=== PATIENT | female | born 1930 | race Two or more races ===

== ENCOUNTER 2018-10-29 22:49 | Inpatient (IN) | payer MEDICARE, MEDICAID ==
[~2018-10-29] VITALS: Ht 147.3 cm; Wt 68.9 kg
--- NOTE | 2018-10-29 23:34 | NUR ---
assessment made. ERP at bedside.
--- NOTE | 2018-10-29 23:38 | NUR ---
CT PENDING CREATINE RESULT
[2018-10-30] MEDS ORDERED: hydrALAzine 20 MG/ML, 1ML IV ONE
[2018-10-30] MEDS ORDERED: hydrALAzine 20 MG/ML, 1ML ONE (00:35)
[2018-10-30 00:39] LABS: BASOPHILS # (AUTO) 0.04 x10^3/uL (0-0.1); BASOPHILS % (AUTO) 1 % (0-1); EOSINOPHILS # (AUTO) 0.34 x10^3/uL (0-0.4); EOSINOPHILS % (AUTO) 4 % (1-7); LYMPHOCYTES # (AUTO) 1.54 x10^3/uL (1-3.4); LYMPHOCYTES % (AUTO) 18 % (22-44); MD NO; MEAN CORPUSCULAR HEMOGLOBIN 30.8 pg (27.0-34.8); MEAN CORPUSCULAR HGB CONC 33.2 g/dL (32.4-35.8); MEAN CORPUSCULAR VOLUME 92.7 fL (80-100); MEAN PLATELET VOLUME 11.5 fL (7.4-10.4); MONOCYTES % (AUTO) 5 % (2-9); NEUTROPHILS # (AUTO) 6.44 x10^3/uL (1.8-6.8); NEUTROPHILS % (AUTO) 74 % (42-75); PLATELET COUNT 156 x10^3/uL (130-400); RED BLOOD COUNT 4.45 x10^6/uL (3.82-5.3); RED CELL DISTRIBUTION WIDTH 16.1 % (9.6-15.2)
[2018-10-30 00:46] LABS: ALBUMIN 3.4 g/dL (3.4-5.0); ANION GAP 8 mmol/L (5-15); CALCIUM 8.6 mg/dL (8.5-10.1); CHLORIDE 108 mmol/L (98-107)
[2018-10-30 00:52] LABS: ALANINE AMINOTRANSFERASE 13 U/L (12-78); ALKALINE PHOSPHATASE 108 U/L (45-117); BILIRUBIN,TOTAL 0.5 mg/dL (0.2-1.0); CREATININE 1.31 mg/dL (0.55-1.02); TROPONIN I < 0.015 ng/mL (0.000-0.045)
--- NOTE | 2018-10-30 01:15 | NUR ---
back from CT scan. awaiting result. patient c/o headache and abdominal pain will notify ERP.
[2018-10-30] MEDS ORDERED: OMNIPAQUE 350 MG/ML, 100ML BOTTLE ONE (01:17)
[2018-10-30] MEDS ORDERED: MORPHINE SULFATE 4 MG/ML, 1ML ONE (01:33)
--- NOTE | 2018-10-30 01:37 | NUR ---
patient medicated for pain.
--- NOTE | 2018-10-30 01:53 | NUR ---
REPORT TO MISHEL SILVERMAN
[2018-10-30] MEDS ORDERED: morphine SULFATE 10 MG/ML, 1ML IVPush ONE (02:00)
[2018-10-30] MEDS ORDERED: MORPHINE SULFATE 4 MG/ML, 1ML IVPush ONE (02:00)
--- NOTE | 2018-10-30 02:23 | NUR ---
PT ASSITED TO BATHROOM, AMBUALATE WITH STANDBY ASSIST WHICH IS WHAT STATES SHE DOES AT HOME, NEVER WALKS ALONE
[2018-10-30] MEDS ORDERED: GABA800T5 PO (02:28)
[2018-10-30] MEDS ORDERED: INSU100V8 SQ (02:28)
[2018-10-30] MEDS ORDERED: CARV6.252 PO (02:28)
[2018-10-30] MEDS ORDERED: ESCI10TA PO (02:28)
[2018-10-30] MEDS ORDERED: OMEP-110 PO (02:28)
[2018-10-30] MEDS ORDERED: IRBE150T25 PO (02:28)
[2018-10-30] MEDS ORDERED: INSU100C SQ-INSULIN (02:28)
[2018-10-30] MEDS ORDERED: HEPARIN 25,000 UNITS/500ML PMX 500 ML ONE (02:43)
[2018-10-30] MEDS ORDERED: HEPARIN 5,000 UNITS/ML, 1ML ONE (02:43)
[2018-10-30] MEDS: HEPARIN 25,000 UNITS/500ML PMX 500 ML IV PRN (02:56)
--- NOTE | 2018-10-30 02:56 | NUR ---
DR KEENAN AT BEDSIDE FOR EXAM, HEPARIN STARTED PER MD. PT IS A FIB ON MONITOR FAMILY UNAWARE OF HISTORY OF THIS.
[2018-10-30] MEDS ORDERED: ONDANSETRON 2MG/ML, 2ML IVPush PRN ×2 (03:00→04:00)
[2018-10-30] MEDS ORDERED: MORPHINE SULFATE 4 MG/ML, 1ML IVPush PRN (03:00)
[2018-10-30] MEDS ORDERED: HEPARIN 5,000 UNITS/ML, 1ML IV ONE (03:00)
[2018-10-30] MEDS ORDERED: GABAPENTIN 300 MG CAPSULE PO PRN (04:00)
[2018-10-30] MEDS ORDERED: PROMETHAZINE 25 MG/ML, 1ML IM PRN (04:00)
[2018-10-30] MEDS ORDERED: FUROSEMIDE 20 MG/2 ML IV ONE (04:00)
[2018-10-30] MEDS ORDERED: DOCUSATE 100 MG CAPSULE PO PRN (04:00)
[2018-10-30] MEDS ORDERED: ONDANSETRON ODT 4 MG PO PRN (04:00)
[2018-10-30] MEDS ORDERED: OXYcodone IR 5MG TABLET PO PRN (04:00)
[2018-10-30] MEDS ORDERED: POLYETHYLENE GLYCOL 17 GM PACKET PO PRN (04:00)
[2018-10-30] MEDS ORDERED: BISACODYL 10 MG SUPP PR PRN (04:00)
[2018-10-30] MEDS ORDERED: ACETAMINOPHEN 325 MG TABLET PO PRN (04:00)
[2018-10-30] MEDS ORDERED: morphine SULFATE 10 MG/ML, 1ML IVPush PRN (04:00)
[2018-10-30 04:07] VITALS: BP 196/89
[2018-10-30] MEDS: GABAPENTIN 400 MG CAPSULE PO SCH ×5 (04:09→21:33)
[2018-10-30] MEDS: CARVEDILOL 6.25 MG TABLET PO SCH ×3 (04:09→17:33)
[2018-10-30] MEDS: INSULIN LISPRO 100 UNITS/ML, PEN SQ-INSULIN SCH ×5 (05:24→21:33)
[2018-10-30 06:17] LABS: TROPONIN I < 0.015 ng/mL (0.000-0.045)
[2018-10-30 06:19] LABS: FREE T4 (FREE THYROXINE) 1.08 ng/dL (0.76-1.46); THYROID STIMULATING HORMONE 0.174 mIU/L (0.358-3.740)
[2018-10-30 08:05] VITALS: BP 187/80
[2018-10-30 08:58] LABS: MICROSCOPIC NOT IND
[2018-10-30 09:02] LABS: CULTURE INDICATED? NO
[2018-10-30] MEDS: OMEPRAZOLE 20 MG CAPSULE.DR PO SCH ×2 (09:58→10:32)
[2018-10-30] MEDS: AMLODIPINE 5 MG TABLET PO SCH ×2 (09:58→10:32)
[2018-10-30] MEDS: CITALOPRAM 20 MG TABLET PO SCH ×2 (09:59→10:32)
[2018-10-30] MEDS: HEPARIN 5,000 UNITS/ML, 1ML IV PRN ×2 (10:03→23:40)
[2018-10-30] MEDS ORDERED: NALOXONE 0.4 MG/ML, 1ML IVPush ONE (10:30)
[2018-10-30] MEDS ORDERED: NALOXONE 0.4 MG/ML, 1ML ONE (10:31)
[2018-10-30] MEDS: hydrALAzine 20 MG/ML, 1ML IVPush PRN (10:31)
[2018-10-30 12:18] LABS: TROPONIN I < 0.015 ng/mL (0.000-0.045)
[2018-10-30 13:00] VITALS: BP 117/81
[2018-10-30 19:30] VITALS: BP 136/74
[2018-10-31 00:51] VITALS: BP 154/76
[2018-10-31 05:50] VITALS: BP 179/84
[2018-10-31] MEDS: CARVEDILOL 6.25 MG TABLET PO SCH ×2 (05:50→16:08)
[2018-10-31] MEDS: hydrALAzine 20 MG/ML, 1ML IVPush PRN (06:24)
[2018-10-31 06:25] VITALS: BP 187/74
[2018-10-31 06:38] LABS: BASOPHILS # (AUTO) 0.04 x10^3/uL (0-0.1); BASOPHILS % (AUTO) 0 % (0-1); EOSINOPHILS % (AUTO) 1 % (1-7); LYMPHOCYTES # (AUTO) 1.35 x10^3/uL (1-3.4); LYMPHOCYTES % (AUTO) 14 % (22-44); MD NO; MEAN CORPUSCULAR HEMOGLOBIN 30.9 pg (27.0-34.8); MEAN CORPUSCULAR HGB CONC 33.9 g/dL (32.4-35.8); MEAN CORPUSCULAR VOLUME 91.2 fL (80-100); MEAN PLATELET VOLUME 11.2 fL (7.4-10.4); MONOCYTES # (AUTO) 0.53 x10^3/uL (0.2-0.8); MONOCYTES % (AUTO) 5 % (2-9); NEUTROPHILS # (AUTO) 7.86 x10^3/uL (1.8-6.8); NEUTROPHILS % (AUTO) 80 % (42-75); PLATELET COUNT 141 x10^3/uL (130-400); RED CELL DISTRIBUTION WIDTH 16.3 % (9.6-15.2)
[2018-10-31 06:47] LABS: ALBUMIN 3.3 g/dL (3.4-5.0); ANION GAP 9 mmol/L (5-15); CALCIUM 8.4 mg/dL (8.5-10.1); CHLORIDE 100 mmol/L (98-107)
[2018-10-31 06:51] LABS: ALANINE AMINOTRANSFERASE 27 U/L (12-78); ALKALINE PHOSPHATASE 105 U/L (45-117); BILIRUBIN,TOTAL 1.6 mg/dL (0.2-1.0); CHOL/HDL RATIO 4.6; CHOLESTEROL, TOTAL 208 mg/dL (140-239); CREATININE 1.59 mg/dL (0.55-1.02); HDL CHOL % 22 % (28-40); HDL CHOLESTEROL (DIRECT) 45 mg/dL (40-60); LDL CHOLESTEROL,CALCULATED 136 mg/dL (54-169); TOTAL PROTEIN 7.9 g/dL (6.4-8.2); TRIGLYCERIDES 133 mg/dL (50-200); VLDL CHOLESTEROL 27 mg/dL (0-25)
[2018-10-31] MEDS: CITALOPRAM 20 MG TABLET PO SCH (07:53)
[2018-10-31] MEDS: AMLODIPINE 5 MG TABLET PO SCH (07:53)
[2018-10-31] MEDS: OMEPRAZOLE 20 MG CAPSULE.DR PO SCH (07:53)
[2018-10-31] MEDS: GABAPENTIN 400 MG CAPSULE PO SCH ×3 (07:53→21:42)
[2018-10-31] MEDS: HEPARIN 5,000 UNITS/ML, 1ML IV PRN ×2 (08:00→21:42)
[2018-10-31] MEDS: INSULIN LISPRO 100 UNITS/ML, PEN SQ-INSULIN SCH ×4 (08:09→22:04)
[2018-10-31 08:37] VITALS: BP 144/75
[2018-10-31] MEDS ORDERED: POTASSIUM CHLORIDE 40 MEQ in SODIUM CHLORIDE 0.9% 500 ML IV ONE (11:00)
[2018-10-31] MEDS: SODIUM CHLORIDE 0.9% 1,000 ML IV SCH (11:47)
[2018-10-31 15:48] VITALS: BP 124/70
[2018-10-31] MEDS: HEPARIN 25,000 UNITS/500ML PMX 500 ML IV PRN (16:17)
[2018-10-31] MEDS ORDERED: OMNIPAQUE 350 MG/ML, 100ML BOTTLE ONE (17:15)
[2018-10-31 19:54] VITALS: BP 127/74
[2018-11-01 00:03] VITALS: BP 127/65
[2018-11-01] MEDS: SODIUM CHLORIDE 0.9% 1,000 ML IV SCH (02:33)
[2018-11-01] MEDS ORDERED: ASPIRIN 81 MG TABLET EC PO SCH (06:00)
[2018-11-01] MEDS: CARVEDILOL 6.25 MG TABLET PO SCH (06:07)
[2018-11-01 07:13] VITALS: BP 104/61
[2018-11-01] MEDS: OMEPRAZOLE 20 MG CAPSULE.DR PO SCH (08:17)
[2018-11-01] MEDS: GABAPENTIN 400 MG CAPSULE PO SCH (08:17)
[2018-11-01] MEDS: INSULIN LISPRO 100 UNITS/ML, PEN SQ-INSULIN SCH ×2 (08:17→11:56)
[2018-11-01] MEDS: CITALOPRAM 20 MG TABLET PO SCH (08:17)
[2018-11-01 10:39] VITALS: BP 111/65
[2018-11-01] MEDS ORDERED: SODIUM CHLORIDE NASAL SPRAY 45ML BOTTLE NAS PRN (12:00)
[2018-11-01] MEDS ORDERED: APIX5TAB PO (12:54)
[2018-11-01 14:26] VITALS: BP 124/71
[2018-11-01] MEDS ORDERED: APIXABAN 5 MG TABLET PO SCH (21:00)
== END 2018-11-01 16:49 | disposition home health service (06) | DRG 682 ==
LOC: ED 10-30 02:10 → EDIP 10-30 02:39 → 5SO 10-30 03:34
PROVIDERS: ADMIT Internal Medicine; ATTEND Internal Medicine
DX: N17.0 Acute kidney failure with tubular necrosis (principal); I50.43 Acute on chronic combined systolic (congestive) and diastolic (congestive) heart failure; N28.0 Ischemia and infarction of kidney; I48.91 Unspecified atrial fibrillation; E04.2 Nontoxic multinodular goiter; E11.65 Type 2 diabetes mellitus with hyperglycemia; E78.5 Hyperlipidemia, unspecified; F03.90 Unspecified dementia, unspecified severity, without behavioral disturbance, psychotic disturbance, mood disturbance, and anxiety; F41.9 Anxiety disorder, unspecified; K21.9 Gastro-esophageal reflux disease without esophagitis; I08.3 Combined rheumatic disorders of mitral, aortic and tricuspid valves; H91.90 Unspecified hearing loss, unspecified ear; I11.0 Hypertensive heart disease with heart failure; I16.0 Hypertensive urgency; I25.2 Old myocardial infarction; Z79.4 Long term (current) use of insulin; Z86.73 Personal history of transient ischemic attack (TIA), and cerebral infarction without residual deficits
CPT/HCPCS: 36415; 70450; 71045; 71275; 74177; 80053; 80061; 81003; 82962; 83036; 83690; 83735; 83880; 84439; 84443; 84484; 85025; 85520; 93005; 93306; 96374; 96375; 99291; G0378; J1644; J2310; J3480; Q9967; J0360; J1815; J1940; J2270; J7030; J7040